=== PATIENT | male | born 2000 | race Two or more races ===

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

== ENCOUNTER 2020-06-15 08:19 | Emergency (ER) | payer OTHER ==
[~2020-06-15] VITALS: Ht 175.3 cm; Wt 59.1 kg
[~2020-06-15 08:19] MED LIST changes: +MICO45CR11 TOP; +MUPI22OI30 TP
[2020-06-15] MEDS ORDERED: normal saline 1000ml 1,000 ML IV SCH (08:45)
[2020-06-15 09:03] LABS: ABG BASE EXCESS -8.3 mmol/L (-2.0-2.0); ABG HCO3 15.7 mmol/L (22.0-26.0); ABG OXYGEN SATURATION 98.1 % (94-97); ABG PCO2 (T) 29.2 mmHg (35.0-48.0); ABG PO2 (T) 111.1 mmHg (75.0-100.0); ALLEN'S TEST POSITIVE; FCOHb 0.2 % (0.0-3.9); FMetHb 0.3 % (0.0-1.5); FO2Hb 97.6 % (94-97); TOTAL HEMOGLOBIN 16.6 G/dl (14.0-18.0)
[2020-06-15 09:08] LABS: BASOPHILS # (AUTO) 0.1 X10'3 (0-0.2); EOSINOPHILS # (AUTO) 0.1 X10'3 (0-0.9); EOSINOPHILS % (AUTO) 1.1 % (0-6); HEMATOCRIT 49.2 % (42.0-52.0); HEMOGLOBIN 16.7 g/dl (14.0-17.9); LYMPHOCYTES # (AUTO) 3.2 X10'3 (1.1-4.8); LYMPHOCYTES % (AUTO) 49.3 % (21-51); MEAN CORPUSCULAR HEMOGLOBIN 30.8 PG (27.0-31.0); MEAN CORPUSCULAR HGB CONC 33.9 g/dL (33.0-36.5); MEAN PLATELET VOLUME 10.7 FL (7.4-10.4); MONOCYTES # (AUTO) 0.3 X10'3 (0-0.9); MONOCYTES % (AUTO) 5.3 % (2-12); NEUTROPHILS # (AUTO) 2.8 X10'3 (1.8-7.7); NEUTROPHILS % (AUTO) 43.3 % (42-75); PLATELET COUNT 202 X10'3 (140-440); RED CELL DISTRIBUTION WIDTH 12.4 % (11.5-14.5); WHITE BLOOD COUNT 6.4 X10'3 (4.5-11.0)
[2020-06-15] MEDS ORDERED: metoclopramide 5 mg/ml inj IV ONE (09:25)
[2020-06-15 09:26] LABS: ALANINE AMINOTRANSFERASE 22 U/L (12-78); ALBUMIN 4.1 G/DL (3.4-5.0); ALKALINE PHOSPHATASE 274 IU/L (20-180); ANION GAP 21 (8-16); ASPARTATE AMINO TRANSFERASE 13 U/L (10-37); BILIRUBIN,TOTAL 0.7 MG/DL (0.1-1.0); BLOOD UREA NITROGEN 14 MG/DL (7-18); BUN/CREATININE RATIO 13.2 (5.4-32.0); CALCIUM 9.5 MG/DL (8.5-10.1); CHLORIDE 94 MMOL/L (99-107); CREATININE 1.06 MG/DL (0.60-1.10); PHOSPHORUS 4.4 MG/DL (2.3-4.5); POTASSIUM 3.8 MMOL/L (3.5-5.1); SODIUM 135 MMOL/L (135-145); TOTAL CARBON DIOXIDE 19.9 MMOL/L (24-32); TOTAL PROTEIN 8.4 G/DL (6.4-8.2); eGFR 89 ML/MIN
[2020-06-15 09:27] LABS: GLUCOSE 495 MG/DL (70-104)
[2020-06-15 09:31] LABS: LARGE PLATELETS FEW; PLATELET ESTIMATE NORMAL
[2020-06-15] MEDS ORDERED: insulin regular, human 10 units/0.1 ml syringe IV ONE (09:45)
[2020-06-15] MEDS ORDERED: ONDA4TAB6 PO (09:52)
[2020-06-15 10:12] VITALS: BP 98/62
== END 2020-06-15 10:16 | disposition home or self-care (01) ==
LOC: ER 08:19
DX: E11.65 Type 2 diabetes mellitus with hyperglycemia (principal); R11.2 Nausea with vomiting, unspecified; E86.0 Dehydration; F12.90 Cannabis use, unspecified, uncomplicated; Z72.89 Other problems related to lifestyle; Z79.4 Long term (current) use of insulin; Z79.899 Other long term (current) drug therapy; Z79.2 Long term (current) use of antibiotics
CPT/HCPCS: 36415; 36600; 80053; 82803; 82948; 84100; 85008; 85018; 85025; 93005; 96361; 96374; 99291; J1815; J7030

== ENCOUNTER 2021-09-13 16:02 | Emergency (ER) | payer SELFPAY ==
[~2021-09-13] VITALS: Ht 172.7 cm; Wt 56.8 kg
[~2021-09-13 16:02] MED LIST changes: -MICO45CR11 TOP; +MICO45CR46 TOP; +ONDA4TAB6 PO
[2021-09-13 16:49] VITALS: BP 118/74
== END 2021-09-13 19:02 | disposition home or self-care (01) ==
LOC: ER 16:02
DX: H57.11 Ocular pain, right eye (principal); Z53.21 Procedure and treatment not carried out due to patient leaving prior to being seen by health care provider

== ENCOUNTER 2022-07-31 09:42 | Emergency (ER) | payer SELFPAY ==
[~2022-07-31] VITALS: Ht 172.7 cm; Wt 56.8 kg
[2022-07-31 10:08] VITALS: BP 121/79
[2022-07-31] MEDS ORDERED: ONDA4TAB12 PO (15:10)
== END 2022-07-31 10:54 | disposition left against medical advice (07) ==
LOC: ER 09:43
DX: R10.9 Unspecified abdominal pain (principal); R11.10 Vomiting, unspecified; Z53.21 Procedure and treatment not carried out due to patient leaving prior to being seen by health care provider
CPT/HCPCS: 82948; 99281

== ENCOUNTER 2022-07-31 13:51 | Emergency (ER) | payer MEDICAID ==
[~2022-07-31] VITALS: Ht 172.7 cm; Wt 56.8 kg
[2022-07-31] MEDS ORDERED: normal saline 1000ML IV soln IVB ONE (14:45)
[2022-07-31] MEDS ORDERED: ondansetron/PF 4mg/2ml inj IV ONE (14:45)
[2022-07-31 14:50] LABS: BASOPHILS # (AUTO) 0.1 X10'3 (0-0.2); BASOPHILS % (AUTO) 0.9 % (0-1); EOSINOPHILS # (AUTO) 0.1 X10'3 (0-0.9); HEMATOCRIT 45.7 % (42.0-52.0); HEMOGLOBIN 15.4 g/dl (14.0-17.9); LYMPHOCYTES # (AUTO) 2.3 X10'3 (1.1-4.8); LYMPHOCYTES % (AUTO) 38.3 % (21-51); MEAN CORPUSCULAR HEMOGLOBIN 29.5 PG (27.0-31.0); MEAN CORPUSCULAR HGB CONC 33.8 g/dL (33.0-36.5); MEAN CORPUSCULAR VOLUME 87.4 FL (78-98); MEAN PLATELET VOLUME 10.9 FL (7.4-10.4); MONOCYTES # (AUTO) 0.3 X10'3 (0-0.9); MONOCYTES % (AUTO) 5.5 % (2-12); NEUTROPHILS # (AUTO) 3.3 X10'3 (1.8-7.7); NEUTROPHILS % (AUTO) 54.3 % (42-75); PLATELET COUNT 162 X10'3 (140-440); RED BLOOD COUNT 5.23 X10'6 (4.70-6.10); RED CELL DISTRIBUTION WIDTH 13.4 % (11.5-14.5)
[2022-07-31 15:05] LABS: ALANINE AMINOTRANSFERASE 18 U/L (12-78); ALBUMIN 4.4 G/DL (3.4-5.0); ALBUMIN/GLOBULIN RATIO 1.4 (1.1-1.5); ALKALINE PHOSPHATASE 119 IU/L (46-116); ANION GAP 14 (8-16); ASPARTATE AMINO TRANSFERASE 11 U/L (10-37); BILIRUBIN,TOTAL 0.8 MG/DL (0.1-1.0); BLOOD UREA NITROGEN 9 MG/DL (7-18); BUN/CREATININE RATIO 11.8 (10.0-20.0); CALCIUM 9.6 MG/DL (8.5-10.1); CHLORIDE 97 MMOL/L (99-107); CREATININE 0.76 MG/DL (0.60-1.10); GLUCOSE 312 MG/DL (70-104); LIPASE 145 U/L (73-393); POTASSIUM 4.3 MMOL/L (3.5-5.1); SODIUM 135 MMOL/L (135-145); TOTAL CARBON DIOXIDE 24.4 MMOL/L (24-32); TOTAL PROTEIN 7.5 G/DL (6.4-8.2); eGFR > 90 ML/MIN
[2022-07-31] MEDS ORDERED: ONDA4TAB12 PO (15:10)
[2022-07-31 15:13] LABS: LARGE PLATELETS FEW; PLATELET ESTIMATE NORMAL
[2022-07-31 17:05] VITALS: BP 133/85
== END 2022-07-31 18:04 | disposition home or self-care (01) ==
LOC: ER 13:52
DX: E86.0 Dehydration (principal); R11.2 Nausea with vomiting, unspecified; E10.65 Type 1 diabetes mellitus with hyperglycemia
CPT/HCPCS: 36415; 80053; 82948; 83690; 85008; 85025; 96361; 96374; 99284; J2405; J7030